=== PATIENT | male | born 1980 | race Caucasian/White ===

== ENCOUNTER 2017-04-05 11:31 | Emergency (ER) | payer OTHER ==
[~2017-04-05] VITALS: Ht 172.7 cm; Wt 90.9 kg
[2017-04-05 11:39] VITALS: BP 134/83; PULSE 73; TEMP 98.2
== END 2017-04-05 12:43 | disposition home or self-care (01) ==
LOC: COL.ER 11:31
DX: S01.01XA Laceration without foreign body of scalp, initial encounter (principal); W22.8XXA Striking against or struck by other objects, initial encounter

== ENCOUNTER 2017-04-16 12:41 | Emergency (ER) | payer OTHER ==
[2017-04-16 12:43] VITALS: BP 145/98; PULSE 79
== END 2017-04-16 12:49 | disposition home or self-care (01) ==
LOC: COL.ER 12:41
DX: Z48.02 Encounter for removal of sutures (principal)

== ENCOUNTER → 2019-05-08 | Outpatient (CLI) | payer OTHER | LOC: COL.RAD 07:19 | DX: K82.8 Other specified diseases of gallbladder (principal) ==

== ENCOUNTER → 2019-05-10 | Outpatient (CLI) | payer OTHER | LOC: COL.RAD 08:42 | DX: R10.11 Right upper quadrant pain (principal) | CPT/HCPCS: A9537; J2270 ==

== ENCOUNTER 2019-05-21 08:25 | Day surgery (SDC) | payer OTHER ==
[2019-05-21] VITALS (7 sets, daily range): BP systolic 115–140; BP diastolic 55–92; PULSE 67–92; TEMP 97.6
[~2019-05-21] VITALS: Ht 172.7 cm; Wt 93.0 kg
[2019-05-21] MEDS ORDERED: COLACE 100100 MG/CAP PO (13:19)
[2019-05-21] MEDS ORDERED: MOTRIN 600600 MG/TAB PO (13:20)
[2019-05-21] MEDS ORDERED: NORCO 325 MG-51 TAB PO (13:20)
== END 2019-05-21 15:30 | disposition home or self-care (01) ==
LOC: SDCO 08:25
DX: K81.1 Chronic cholecystitis (principal); K76.0 Fatty (change of) liver, not elsewhere classified; F17.210 Nicotine dependence, cigarettes, uncomplicated; Z80.1 Family history of malignant neoplasm of trachea, bronchus and lung; Z80.0 Family history of malignant neoplasm of digestive organs; Z83.3 Family history of diabetes mellitus; Z79.891 Long term (current) use of opiate analgesic
CPT/HCPCS: J0690; J1100; J1885; J2704; J3010; J7120; Q9967

== ENCOUNTER → 2020-08-25 | Outpatient (CLI) | payer OTHER ==
[~2020-08-25] MED LIST: COLACE 100100 MG/CAP PO; MOTRIN 600600 MG/TAB PO; NORCO 325 MG-51 TAB PO
== END ==
LOC: COL.RAD 09:24
DX: N43.3 Hydrocele, unspecified (principal)